=== PATIENT | male | born 1970 | race Caucasian/White ===

== ENCOUNTER 2020-02-21 12:43 | Emergency (ER) | payer BC ==
[2020-02-21] MEDS ORDERED: Aspirin 81 MG Tab.Chew PO ONE (13:05)
[2020-02-21] MEDS ORDERED: Sodium Chloride 0.9% 2.5 ML Syringe FLUSH PRN (13:05)
[2020-02-21] MEDS ORDERED: Sodium Chloride 0.9% 10 ML Syringe FLUSH PRN (13:05)
--- NOTE | 2020-02-21 13:11 | EDM.PDOC ---
ED HPI GENERAL MEDICAL PROBLEM - General Chief Complaint: Respiratory Problem Stated Complaint: COVID COMPLICATIONS Time Seen by Provider: 02/21/20 12:43 Source of Information: Reports: Patient History Limitations: Reports: No Limitations - History of Present Illness INITIAL COMMENTS - FREE TEXT/NARRATIVE: HISTORY AND PHYSICAL: History of present illness: Patient is a 49-year-old male who presents to the emergency room with complaints of shortness of breath x1 week. He states earlier this week he had shortness of breath and chest tightness, and he was concerned he had COVID-19. He had gone to the clinic in [facility] and was tested, negative. Reports that the healthcare provider said his "lungs are coarse" but did not require any medications and to "return to the emergency room if you start turning blue". He states he continues to feel short of breath and has chest tightness to the lower aspects of his lungs (no midsternal or chest pain). He has an oxygen saturation monitor at home and had it on his finger while he was walking up the stairs and states his oxygen saturation was 88% on room air. He had a reported temperature of 100.1 F last night. Patient denies any chills, headache, change in vision, syncope or near syncope. Denies any chest pain, back pain, abdominal pain, nausea, vomiting, diarrhea, constipation or dysuria. Has not noted any blood in urine or stool. Patient has been eating and drinking appropriately. Patient has a past medical history of heart disease, [place] and diabetes. Review of systems: As per history of present illness and below otherwise all systems reviewed and negative. Past medical history: As per history of present illness and as reviewed below otherwise noncontributory. Surgical history: As per history of present illness and as reviewed below otherwise noncontributory. Social history: See social history for further information Family history: As per history of present illness and as reviewed below otherwise noncontributory. Physical exam: General: Well developed and well nourished. Alert and orientated x 3. Nontoxic in appearance and in no acute distress. Vital signs are stable and have been r eviewed by me. Nursing notes were reviewed. HEENT: Atraumatic, normocephalic, pupils equal and reactive bilaterally, negative for conjunctival pallor or scleral icterus, mucous membranes moist, TMs normal bilaterally, throat clear, neck supple, nontender, trachea midline. No drooling or trismus noted. No meningeal signs. No hot potato voice noted. Lungs: Clear to auscultation, breath sounds equal bilaterally, chest nontender. Normal work of breathing, no accessory muscles used. Heart: S1S2, regular rate and rhythm without overt murmur Abdomen: Soft, nondistended, nontender. Negative for masses or hepatosplenomegaly. Negative for costovertebral tenderness. Pelvis: Stable nontender. Skin: Intact, warm, dry. No lesions or rashes noted. Hematologic: No petechiae or purpra. Mucosa appropriate color and normal nail bed color and refill. Extremities: Atraumatic, moves all extremities per self without difficulty or deficits, negative for cords or calf pain. Neurovascular unremarkable. Neuro: Awake, alert, oriented. Cranial nerves II through XII unremarkable. Cerebellum unremarkable. Motor and sensory unremarkable throughout. Exam nonfocal. Psychiatric: Mood and affect are appropriate. Normal thought process. Answering questions appropriately. Notes: Chest x-ray shows patchy area of infiltrate in the right middle lung zone. The x-ray also shows an increased soft tissue density behind the left heart, rule out hiatus hernia. Radiologist is recommending a CT chest for further assessment. I did inform the patient of the x-ray findings. He has had no abdominal pain, nausea, vomiting or difficulty with eating/swallowing. I did offer to do the CT of the chest or he could follow-up with a general surgeon to have this done as an outpatient. At this time he would prefer to hold off on doing the CT of the chest and follow-up with his primary care provider. We did discuss signs and symptoms that would prompt him to return sooner for this issue if needed. Lab work and COVID/Influenza screening are negative. [facility] about today's findings, in addition to providing specific details for plan of care. Reassessment at the time of disposition demonstrates that the patient is in no acute distress. The patient is stable for discharge, counseling was provided and we discussed in great detail signs and symptoms that would prompt them to return to the Emergency Department. Medication, follow up and supportive care measures were reviewed and discussed. Voices understanding and is agreeable to plan of care. Denies any further questions or concerns at this time. Diagnostics: CBC, CMP, Troponin, EKG, CXR, COVID/Influenza Therapeutics: ASA Prescription: Zpak, Pro-Air Impression: Atypical Pneumonia Plan: 1. Today your lab work and COVID/Influenza screen is negative. You do have an early start of a pneumonia. 2. Take the antibiotic as directed. Alternate Tylenol and Ibuprofen as needed. 3. We encourage you to follow up with your primary care provider and/or recommended specialist in the next few days for re-evaluation and further care/management. If your symptoms should worsen, new symptoms develop or any of the signs and symptoms we discussed should arise please return to the emergency room or call 911 (if needed). Definitive disposition and diagnosis as appropriate pending reevaluation and review of above. - Related Data Allergies Allergy/AdvReac Type Severity Reaction Status Date / Time cephalexin Allergy Rash Verified 02/21/20 13:12 diphenhydramine Allergy Rash Verified 02/21/20 13:12 [From Benadryl] Sulfa (Sulfonamide Allergy Rash Verified 02/21/20 13:12 Antibiotics) sulfamethoxazole Allergy Rash Verified 02/21/20 13:12 [From Bactrim] trimethoprim [From Bactrim] Allergy Rash Verified 02/21/20 13:12 Home Meds: Home Meds Albuterol Sulfate [Proair Hfa] 2 puff IH Q4H PRN #1 hfa.aer.ad 02/21/20 [Rx] Azithromycin [Zithromax] 1 dose PO DAILY 5 Days #6 tab 02/21/20 [Rx] Insulin Pump Syringe, 1.8 mL [Minimed [place]] 1 each MC 02/21/20 [History] Levothyroxine Sodium [Synthroid] 150 mcg PO DAILY 02/21/20 [History] ED ROS GENERAL - Review of Systems Review Of Systems: Comprehensive ROS is negative, except as noted in HPI. ED EXAM, GENERAL - Physical Exam Exam: See Below (See dictation) Course - Vital Signs Last Recorded V/S: Last Vital Signs Temp 97.1 F 02/21/20 13:03 Pulse 76 02/21/20 13:03 Resp 20 02/21/20 13:03 BP 157/89 H 02/21/20 13:03 Pulse Ox 96 02/21/20 13:03 - Orders/Labs/Meds Orders: Active Orders 24 hr Category Date Time Status EKG Documentation Completion [RC] STAT Care 02/21/20 13:05 Active Sodium Chloride 0.9% [Saline Flush] Med 02/21/20 13:05 Active 10 ml FLUSH ASDIRECTED PRN Sodium Chloride 0.9% [Saline Flush] Med 02/21/20 13:05 Active 2.5 ml FLUSH ASDIRECTED PRN Saline Lock Insert [OM.PC] Stat Oth 02/21/20 13:05 Ordered Medication Orders Sodium Chloride (Saline Flush) 10 ml FLUSH ASDIRECTED PRN PRN Reason: Keep Vein Open Last Admin: 02/21/20 13:14 Dose: 10 ml Documented by: KATERINA Sodium Chloride (Saline Flush) 2.5 ml FLUSH ASDIRECTED PRN PRN Reason: Keep Vein Open Last Admin: 02/21/20 13:14 Dose: 2.5 ml Documented by: KATERINA Labs: Laboratory Tests 02/21/20 02/21/20 02/21/20 Range/Units 13:12 13:12 13:25 WBC 6.38 (4.0-11.0) K/uL RBC 5.97 H (4.50-5.90) M/uL Hgb 16.6 (13.0-17.0) g/dL Hct 48.8 (38.0-50.0) % MCV 81.7 (80.0-98.0) fL MCH 27.8 (27.0-32.0) pg MCHC 34.0 (31.0-37.0) g/dL RDW Std Deviation 40.3 (28.0-62.0) fl RDW Coeff of Daniel 14 (11.0-15.0) % Plt Count 253 (150-400) K/uL MPV 10.10 (7.40-12.00) fL Neut % (Auto) 64.1 (48.0-80.0) % Lymph % (Auto) 16.0 (16.0-40.0) % Darke % (Auto) 8.8 (0.0-15.0) % Eos % (Auto) 10.2 H (0.0-7.0) % Baso % (Auto) 0.9 (0.0-1.5) % Neut # (Auto) 4.1 (1.4-5.7) K/uL Lymph # (Auto) 1.0 (0.6-2.4) K/uL Darke # (Auto) 0.6 (0.0-0.8) K/uL Eos # (Auto) 0.7 (0.0-0.7) K/uL Baso # (Auto) 0.1 (0.0-0.1) K/uL Nucleated RBC % 0.0 /100WBC Nucleated RBCs # 0 K/uL Sodium 138 (136-148) mmol/L Potassium 3.8 (3.5-5.1) mmol/L Chloride 104 (98-107) mmol/L Carbon Dioxide 28.2 (21.0-32.0) mmol/L BUN 11 (7.0-18.0) mg/dL Creatinine 1.4 H (0.8-1.3) mg/dL Est Cr Clr Drug Dosing 67.98 mL/min Estimated GFR (MDRD) 53.9 ml/min Glucose 107 H (74-106) mg/dL Calcium 8.9 (8.5-10.1) mg/dL Total Bilirubin 0.6 (0.2-1.0) mg/dL AST 25 (15-37) IU/L ALT 28 (14-63) IU/L Alkaline Phosphatase 88 (46-116) U/L Troponin I < 0.050 (0.000-0.056) ng/mL Total Protein 7.1 (6.4-8.2) g/dL Albumin 3.5 (3.4-5.0) g/dL Globulin 3.6 (2.6-4.0) g/dL Albumin/Globulin Ratio 1.0 (0.9-1.6) Influenza Type A RNA NEGATIVE (NEGATIVE) Influenza Type B RNA NEGATIVE (NEGATIVE) SARS-CoV-2 RNA (SANJAY) NEGATIVE (NEGATIVE) Meds: Medications Generic Name Dose Route Start Last Admin Trade Name Freq PRN Reason Stop Dose Admin Sodium Chloride 10 ml 02/21/20 13:05 02/21/20 13:14 Saline Flush FLUSH 10 ml ASDIRECTED PRN Administration Keep Vein Open Sodium Chloride 2.5 ml 02/21/20 13:05 02/21/20 13:14 Saline Flush FLUSH 2.5 ml ASDIRECTED PRN Administration Keep Vein Open Discontinued Medications Generic Name Dose Route Start Last Admin Trade Name Freq PRN Reason Stop Dose Admin Aspirin 324 mg 02/21/20 13:05 02/21/20 13:14 Aspirin PO 02/21/20 13:06 324 mg ONETIME ONE Administration Departure - Departure Time of Disposition: 14:22 Disposition: Home, Self-Care 01 Clinical Impression: Atypical pneumonia - Discharge Information Prescriptions: Albuterol Sulfate [Proair Hfa] 2 puff IH Q4H PRN #1 hfa.aer.ad PRN Reason: Dyspnea Azithromycin [Zithromax] 1 dose PO DAILY 5 Days #6 tab Instructions: Community-Acquired Pneumonia, Adult, [id number] Referrals: PCP,Not In Area [Primary Care Provider] - Forms: ED Department Discharge Additional Instructions: The following information is given to patients seen in the emergency department who are being discharged to home. This information is to outline your options for follow-up care. We provide all patients seen in our emergency department with a follow-up referral. The need for follow-up, as well as the timing and circumstances, are variable depending upon the specifics of your emergency department visit. If you don't have a primary care physician on staff, we will provide you with a referral. We always advise you to contact your personal physician following an emergency department visit to inform them of the circumstance of the visit and for follow-up with them and/or the need for any referrals to a consulting specialist. The emergency department will also refer you to a specialist when appropriate. This referral assures that you have the opportunity for follow-up care with a specialist. All of these measure are taken in an effort to provide you with optimal care, which includes your follow-up. Under all circumstances we always encourage you to contact your private physician who remains a resource for coordinating your care. When calling for follow-up care, please make the office aware that this follow-up is from your recent emergency room visit. If for any reason you are refused follow-up, please contact the [facility] Emergency Department at and asked to speak to the emergency department charge nurse. [facility] [address] [place] [id number] [place] [address] Thank you for choosing the [facility] emergency department in [place] for your medical needs today. It was a pleasure caring for you. Today you were seen in the emergency department for SOB. 1. Today your lab work and COVID/Influenza screen is negative. You do have an early start of a pneumonia. 2. Take the antibiotic as directed. Alternate Tylenol and Ibuprofen as needed. 3. We encourage you to follow up with your primary care provider and/or recommended specialist in the next few days for re-evaluation and further care/management. If your symptoms should worsen, new symptoms develop or any of the signs and symptoms we discussed should arise please return to the emergency room or call 911 (if needed). Sepsis Event Note (ED) - Focused Exam Vital Signs: Vital Signs Temp Pulse Resp BP Pulse Ox 02/21/20 13:03 97.1 F 76 20 157/89 H 96 - My Orders Last 24 Hours: My Active Orders 02/21/20 13:05 EKG Documentation Completion [RC] STAT Sodium Chloride 0.9% [Saline Flush] 10 ml FLUSH ASDIRECTED PRN Sodium Chloride 0.9% [Saline Flush] 2.5 ml FLUSH ASDIRECTED PRN Saline Lock Insert [OM.PC] Stat - Assessment/Plan Last 24 Hours: My Active Orders 02/21/20 13:05 EKG Documentation Completion [RC] STAT Sodium Chloride 0.9% [Saline Flush] 10 ml FLUSH ASDIRECTED PRN Sodium Chloride 0.9% [Saline Flush] 2.5 ml FLUSH ASDIRECTED PRN Saline Lock Insert [OM.PC] Stat
--- NOTE | 2020-02-21 13:54 | CR ---
INDICATION: Dyspnea. Comparison: None. TECHNIQUE: Portable AP chest. FINDINGS: Normal size cardiac silhouette. Increased soft tissue density behind the left heart; rule out hiatus hernia; suggest obtaining a chest CT to rule out pneumonic infiltrates or other mass lesions. Patchy area of infiltrate identified in the right mid lung zone; again this can be evaluated on a CT of the chest. No pneumothorax or pleural effusion. Impression : Increased soft tissue density behind the left heart; rule out hiatus hernia; suggest obtaining a chest CT for further assessment. 1. Patchy area of infiltrate in the right mid lung zone. Dictated by Marichuy Villalobos MD @ Feb 21 2020 1:51PM Signed by Dr. Marichuy Villalobos @ Feb 21 2020 1:52PM
[2020-02-21 13:57] LABS: BLOOD UREA NITROGEN,BUN 11 mg/dL (7.0-18.0); CARBON DIOXIDE,CO2 28.2 mmol/L (21.0-32.0); CHLORIDE,CL 104 mmol/L (98-107); GLUCOSE RANDOM 107 mg/dL (74-106); POTASSIUM,K 3.8 mmol/L (3.5-5.1); SODIUM,NA 138 mmol/L (136-148)
[2020-02-21 14:17] LABS: CORONAVIRUS COVID-19 NAA NEGATIVE (NEGATIVE); INFLUENZA A NAA NEGATIVE (NEGATIVE); INFLUENZA B NAA NEGATIVE (NEGATIVE)
--- NOTE | 2020-02-23 02:15 | PCM.SN.2 ---
#1 Interpretation EKG Date: 02/21/20 Time: 01:04 Rhythm: NSR Rate (Beats/Min): 74 Tok: Normal P-Wave: Present QRS: Normal ST-T: Normal QT: Normal Comparison: NA - No Prior EKG EKG Interpretation Comments: Sinus Rhythm
== END 2020-02-21 14:31 | disposition home or self-care (01) ==
LOC: MW.ED 12:43
DX: J18.9 Pneumonia, unspecified organism (principal); Z20.828 Contact with and (suspected) exposure to other viral communicable diseases; Z88.1 Allergy status to other antibiotic agents; Z88.2 Allergy status to sulfonamides
CPT/HCPCS: 0240U; 36415; 71045; 80053; 84484; 85025; 93005; 99285; A9270; 93010; 99283